=== PATIENT | male | born 1980 | race Caucasian/White ===

== ENCOUNTER 2023-06-05 23:55 | Emergency (ER) | payer OTHER ==
[~2023-06-05] VITALS: Ht 177.8 cm; Wt 117.9 kg
[2023-06-06 00:07] VITALS: BP 156/87; TEMP 98.2
[2023-06-06 00:11] VITALS: O2SAT 97
== END 2023-06-06 00:12 | disposition left against medical advice (07) ==
LOC: ER 23:59
DX: H92.09 Otalgia, unspecified ear (principal); Z53.21 Procedure and treatment not carried out due to patient leaving prior to being seen by health care provider